=== PATIENT | male | born 1995 | race Caucasian/White ===

== ENCOUNTER 2017-01-10 21:29 | Emergency (ER) | payer SELFPAY ==
[2017-01-10] MEDS ORDERED: ALTEPLASE 100 MG/100 ML VIAL IV ONE ×2 (21:36→21:59)
[2017-01-10 21:41] LABS: % IMMATURE GRANULYOCYTES 0.4 % (0.0-1.1); ABSOLUTE IMMATURE GRANULOCYTES 0.03 10^3/uL (0.00-0.10); ADD DIFF? NO; ADD MORPH? NO; ADD SCAN? NO; ATYPICAL LYMPHOCYTE FLAG 10 (0-99); FRAGMENT RBC FLAG 0 (0-99); HEMOGLOBIN 16.9 g/dL (13.7-17.5); LEFT SHIFT FLG 0 (0-99); LIPEMIA HEMOLYSIS FLAG 90 (0-99); MEAN CELL HEMOGLOBIN CONCENTR. 34.5 g/dL (32.4-36.7); MEAN CELL VOLUME 84.2 fL (81.5-99.8); MEAN PLATELET VOLUME 10.3 fL (8.7-11.7); PLATELET CLUMPS FLAG 0 (0-99); PLATELET COUNT 259 10^3/uL (150-400); RED BLOOD CELL COUNT 5.82 10^6/uL (4.40-6.38); RED CELL DISTRIBUTION WIDTH 12.3 % (11.5-15.2)
[2017-01-10 21:44] VITALS: RESP 18
[2017-01-10] MEDS ORDERED: NS 1,000 ML IV ONE (21:50)
[2017-01-10 21:51] LABS: APTT 29.2 SEC (23.0-38.0); INR 1.07 (0.83-1.16); PROTIME(PATIENT) 13.8 SEC (12.0-15.0)
[2017-01-10 21:54] LABS: ALANINE AMINOTRANSFERASE 37 IU/L (21-72); ALBUMIN 4.7 g/dL (3.5-5.0); ALKALINE PHOSPHATASE 99 IU/L (38-126); ANION GAP 14 mEq/L (8-16); ASPARTATE AMINOTRANSFERASE 28 IU/L (17-59); BILIRUBIN,TOTAL 0.8 mg/dL (0.1-1.4); CALCIUM 9.7 mg/dL (8.5-10.4); CARBON DIOXIDE 23 mEq/l (22-31); CHLORIDE 105 mEq/L (97-110); GLOMERULAR FILTRATION RATE > 60; GLUCOSE 101 mg/dL (70-100); SODIUM 142 mEq/L (134-144); TOTAL PROTEIN 7.6 g/dL (6.3-8.2)
[2017-01-10 21:58] VITALS: TEMP 97.7
[2017-01-10] MEDS ORDERED: ALTEPLASE 1 MG/ML SYR IV ONE (21:58)
[2017-01-10] MEDS ORDERED: NS 50 ML BAG IV ONE (22:02)
[2017-01-10] MEDS ORDERED: NS 100 ML BAG IV ONE (22:02)
--- NOTE | 2017-01-10 22:17 | PDCONSULT ---
Wedding Makeup Artist Note: Demographics First Name Oscar Last Name Aj Date of 1995 Age: 21 Gender Male Referring Provider Dr Medrano Time of initial page (): 01/10/2017 21:44 Time of return call (): 01/10/2017 21:44 Time Ready to Initiate Telemed Consult (): 01/10/2017 21:44 Consult Type Acute Stroke HPI Chief Complaint: right, weakness, aphasia, facial droop Additional History (Free Text): 21 year old man known to return from dinner at 6:30 p.m. buy roommates. He had been texting with his girlfriend prior to that with normal communication. He tried communicating with her at almost 8 p.m. at that time his text messages were gibberish and he's found to be with right-sided weakness and inability to talk. Brought to [facility] CT scan shows dense left middle cerebral artery. Time last seen normal (): 01/10/2017 18:30 PM-- Social History: non-smoker, non-drinker, no drugs Medications: none Exam Vitals: vital signs reviewed Mental Status: awake Language: global aphasia Cranial Nerves facial droop right, R partial hemianopia Motor: R upper extremity weakness, R lower extremity weakness Sensory: dec sensation R upper extremity, dec sensation R lower extremity NIHSS Time (): 01/10/2017 21:30 LOC 1a: 0 = Alert; keenly responsive LOC 1b: 2 = Answers neither questions correctly LOC Commands: 2 = Performs neither task correctly Best Gaze: 1 = Partial gaze palsy; gaze is abnormal in one or both eyes, but forced deviation or total gaze paresis is not present Visual: 2 = Complete hemianopia Facial Palsy 2 = Partial paralysis (total or near-total paralysis of lower face ) Motor Arm L: 0 = No drift; limb holds 90 (or 45) degrees for full 10 seconds Motor Arm R: 4 = No movement Motor Leg L: 0 = No drift; leg holds 30-degree position for full 5 seconds Motor Leg R: 4 = No movement Sensory: 1 = [id number] sensory loss; patient feels pinprick is less sharp or is dull on the affected side, but patient is aware of being touched Best Language: 3 = Mute, global aphasia; no usable speech or auditory comprehension Dysarthria: 2 = Severe dysarthria; patient's speech is so slurred as to be unintelligible Extinction + Inattention: 1 = Visual, tactile, auditory, spatial, or personal inattention NIHSS: [address]: no bleed Assessment Assessment: Acute Ischemic Stroke, Left MCA stroke syndrome with dense M1 clot seen on plain CT. Plan Lytic/Intervention: IV + IA intervention Time IV tPA Recommended (): 01/10/2017 21:46 tPA Administration Recommendations: BP goal< 180/100 for 24hrs post tPA administration, Use Labetolol 10-20mg IV prn or Nicardipine gtt to maintain BP parameters, Call back if there is any decline in neurological condition, Transfer to facility that is IA capable for consideration of mechanical thrombectomy Disposition admit
--- NOTE | 2017-01-10 22:25 | EDPHY ---
H & P Time Seen by Provider: 01/10/17 21:35 HPI/ROS: Chief complaint. Stroke alert HPI. Patient is 21-year-old right-handed male here by EMS as a stroke alert. He was last seen normal at 6:30 p.m. when he came downstairs to have dinner with his roommates. He apparently complained of some headache. At approximately 8:00 p.m. his girlfriend texted him to find out how his headache was and how the patient was feeling. He texted back zachary. He had texted with his girlfriend at 5:00 p.m. and she reports that was a normal texting conversation. EMS finds the patient not to be able to speak or use his right arm or leg. There is no history of trauma or infection. The girlfriend notes that he is healthy and without medical problems. No history of migraine headaches. ROS Constitutional. no fever/chills, no weakness Eyes. no problems with vision ENT. no sore throat, no nasal drainage Cardiovascular. no chest pain Respiratory. no shortness of breath, no cough Abdominal. no abdominal pain, no nausea/vomiting, no diarrhea . no problems urinating MS. no calf pain/swelling, no neck/back pain, no joint pain Skin. no rash Lymph. no swollen glands Neuro. Aphasic, possible headache, not moving right arm or right leg Past Medical/Surgical History: Healthy Social History: Single, unknown if patient smokes. No recent alcohol Smoking Status: Unknown if ever smoked Physical Exam: General Appearance: Alert well-developed male nonverbal moderate distress vital signs are normal. Afebrile. Stable blood pressure. Eyes: Pupils equal and round no pallor or injection. ENT, Mouth: Mucous membranes are moist. Respiratory: There are no retractions, lungs are clear to auscultation. Cardiovascular: Regular rate and rhythm. Gastrointestinal: Abdomen is soft and nontender, no masses, bowel sounds normal. Neurological: Or awake and alert but nonverbal. He gestures such is giving thumbs up appropriately. He makes eye contact. He however is unable to speak he has a right-sided facial droop he has no strength or motor in the right upper and right lower extremities. Left side appears normal. I calculate an NIH stroke scale of 21 Skin: Warm and dry, no rashes. Musculoskeletal: Neck is supple nontender. Extremities symmetrical, full range of motion. Psychiatric: Patient indicates by yes no nods that he is oriented to person place and time, there is no agitation. He does appear to be oriented Constitutional: Initial Vital Signs O2 Sat (%) 98 01/10/17 21:40 O2 Delivery Mode Room Air O2 (L/minute) 2 Allergies/Adverse Reactions: amoxicillin Allergy (Verified 01/10/17 22:55) Home Medications: Medication Instructions Recorded NK [No Known Home Meds] 01/10/17 Medical Decision Making - Diagnostics Imaging: Noncontrast head CT reviewed by me and discussed with Dr. Juarez shows MCA distribution left frontal CVA in evolution. No evidence of free blood Procedures: IV normal saline. Patient is given tPA per weight based protocol ED Course/Re-evaluation: I consulted and discussed case with Dr. Valadez at [facility] and we examined the patient together using the robot. We both notice the aphasia, right-sided facial droop, inability to use right arm or leg. Dr. Valadez recommends no further imaging has we see evidence of MCA distribution acute stroke on the noncontrast head CT. He recommends using tPA and transfer to [facility] Helicopter transport is arranged for emergent transport to [facility]. I spoke to Dr. Alberto Hua in the emergency department at [facility] Continuous and serial evaluations the patient shows patient to be stable. Last set of vital signs show blood pressure 122/76 with a heart rate of 58. 90% saturation on room air. No change in patient's neurologic status. No improvement or deterioration I spoke briefly with the patient's mother who was on her way to our emergency department and she is redirected to the [facility] Emergency Department to meet her son. She is advised of his condition Differential Diagnosis: Differential initially included migraine variant headache, intracranial bleeding or trauma. Patient has apparent MCA distribution CVA seen on noncontrast head CT. He is within the window for treatment with thrombolytics therapy. He has been given tPA. Risks and benefits of this are discussed with the patient and his girlfriend. Of course the reason for patient's CVA is unclear at this point in time. EKG was ordered but not performed due to facilitating emergent transport. It did appear the patient was in normal sinus rhythm on the monitor Patient will be transferred by helicopter emergently to [facility] for further interventional radiology Critical Care Time: Critical care time exclusive procedures 50 minutes - Data Points Laboratory Results: Laboratory Results 01/10/17 21:38 01/10/17 21:38 01/10/17 01/10/17 01/10/17 21:38 21:38 21:38 WBC 7.39 10^3/uL 10^3/uL (3.80-9.50) RBC 5.82 10^6/uL 10^6/uL (4.40-6.38) Hgb 16.9 g/dL g/dL (13.7-17.5) POC Hgb Hct 49.0 % % (40.0-51.0) POC Hct MCV 84.2 fL fL (81.5-99.8) MCH 29.0 pg pg (27.9-34.1) MCHC 34.5 g/dL g/dL (32.4-36.7) RDW 12.3 % % (11.5-15.2) Plt Count 259 10^3/uL 10^3/uL (150-400) MPV 10.3 fL fL (8.7-11.7) Neut % (Auto) 62.0 % % (39.3-74.2) Lymph % (Auto) 27.6 % % (15.0-45.0) Coryell % (Auto) 8.0 % % (4.5-13.0) Eos % (Auto) 1.6 % % (0.6-7.6) Baso % (Auto) 0.4 % % (0.3-1.7) Nucleat RBC Rel Count 0.0 % % (0.0-0.2) Absolute Neuts (auto) 4.58 10^3/uL 10^3/uL (1.70-6.50) Absolute Lymphs (auto) 2.04 10^3/uL 10^3/uL (1.00-3.00) Absolute Monos (auto) 0.59 10^3/uL 10^3/uL (0.30-0.80) Absolute Eos (auto) 0.12 10^3/uL 10^3/uL (0.03-0.40) Absolute Basos (auto) 0.03 10^3/uL 10^3/uL (0.02-0.10) Absolute Nucleated RBC 0.00 10^3/uL 10^3/uL (0-0.01) Immature Gran % 0.4 % % (0.0-1.1) Immature Gran # 0.03 10^3/uL 10^3/uL (0.00-0.10) PT 13.8 SEC SEC (12.0-15.0) INR 1.07 (0.83-1.16) APTT 29.2 SEC SEC (23.0-38.0) POC Sodium Sodium 142 mEq/L mEq/L (134-144) POC Potassium Potassium 4.0 mEq/L mEq/L (3.5-5.2) POC Chloride Chloride 105 mEq/L mEq/L (97-110) Carbon Dioxide 23 mEq/l mEq/l (22-31) Anion Gap 14 mEq/L mEq/L (8-16) POC BUN BUN 15 mg/dL mg/dL (7-23) Creatinine 1.0 mg/dL mg/dL (0.7-1.3) POC Creatinine Estimated GFR > 60 Glucose 101 mg/dL H mg/dL (70-100) POC Glucose Calcium 9.7 mg/dL mg/dL (8.5-10.4) Total Bilirubin 0.8 mg/dL mg/dL (0.1-1.4) AST 28 IU/L IU/L (17-59) ALT 37 IU/L IU/L (21-72) Alkaline Phosphatase 99 IU/L IU/L (38-126) Total Protein 7.6 g/dL g/dL (6.3-8.2) Albumin 4.7 g/dL g/dL (3.5-5.0) 01/10/17 21:29 WBC RBC Hgb POC Hgb 17.0 gm/dL gm/dL (14.5-17.3) Hct POC Hct 50 % % (42.8-50.6) MCV MCH MCHC RDW Plt Count MPV Neut % (Auto) Lymph % (Auto) Coryell % (Auto) Eos % (Auto) Baso % (Auto) Nucleat RBC Rel Count Absolute Neuts (auto) Absolute Lymphs (auto) Absolute Monos (auto) Absolute Eos (auto) Absolute Basos (auto) Absolute Nucleated RBC Immature Gran % Immature Gran # PT INR APTT POC Sodium 144 mEq/L mEq/L (134-144) Sodium POC Potassium 3.6 mEq/L mEq/L (3.3-5.0) Potassium POC Chloride 105 mEq/L mEq/L (96-108) Chloride Carbon Dioxide Anion Gap POC BUN 15 mg/dL mg/dL (7-23) BUN Creatinine POC Creatinine 0.9 mg/dL mg/dL (0.8-1.5) Estimated GFR Glucose POC Glucose 103 mg/dL H mg/dL (70-100) Calcium Total Bilirubin AST ALT Alkaline Phosphatase Total Protein Albumin Medications Given: Discontinued Medications Alteplase, Recombinant (Activase) 7.074 mg 0.09 mg/kg (7.074 mg) IV ONCE ONE PRN Reason: Protocol Stop: 01/10/17 21:59 Last Admin: 01/10/17 21:58 Dose: 7.074 mg Alteplase, Recombinant (Activase) 63.666 mg 0.81 mg/kg (63.666 mg) IV ONCE ONE PRN Reason: Protocol Stop: 01/10/17 22:00 Last Admin: 01/10/17 22:44 Dose: 63.666 mg Sodium Chloride (Ns) 1,000 mls @ 0 mls/hr IV ONCE ONE PRN Reason: Wide Open Stop: 01/10/17 21:51 Last Admin: 01/10/17 22:05 Dose: 1,000 mls Point of Care Test Results: 01/10/17 21:29 POC Sodium 144 POC Potassium 3.6 POC Chloride 105 POC BUN 15 POC Creatinine 0.9 POC Glucose 103 H Departure - Departure Disposition: [facility] Clinical Impression: Acute ischemic stroke Condition: Critical Referrals: Patient,NotPresent [Primary Care Provider] - As per Instructions
[2017-01-10 22:45] VITALS: O2SAT 97
[2017-01-10 22:46] VITALS: PULSE 62
[2017-01-10 22:51] VITALS: BP 120/76
== END 2017-01-10 22:25 | disposition short-term general hospital (02) ==
DX: I63.9 Cerebral infarction, unspecified (principal)
CPT/HCPCS: 82947-QW; 96374; J2997